=== PATIENT | male | born 1940 | race Caucasian/White ===

== ENCOUNTER → 2023-05-06 10:36 | Outpatient (BNV) | payer MEDICARE, BC, SELFPAY ==
--- NOTE | 2023-05-06 10:37 | PD.URODRB ---
Questionnaires Social History Living Situation History Housing: Mobile home Tobacco History Smoking Status: Never smoker Alcohol History Alcohol Intake: Never Review of Systems Report any current symtoms Select symptoms you are currently experiencing: Past Medical History Past Medical History Have you ever been diagnosed with any of the following: Cardiology Problems Congestive Heart Failure: No Edema: No Cellulitis: No Hypertension: Yes Respiratory Problems Chronic Obstructive Pulmonary Disease (COPD): No Asthma: No Stomache/Intestinal Problems Hemorrhoids: Yes Genital/Urinary Problems Renal Disease: No Benign Prostatic Hyperplasia: Yes Musculoskeletal Problems Degenerative Disk Disease: Yes Degenerative Joint Disease: Yes Endocrine Problems Diabetes Mellitus Type 1: No Diabetes Mellitus Type 2: No Blood Problems Sickle Cell Disease: No Other Problems Cancer: Yes (history of throat cancer) Surgical History Pacemaker: Yes Provider Notes Provider Notes HISTORY OF PRESENT ILLNESS: [] REVIEW OF SYSTEMS: [] EXAM: [] ASSESSMENT & PLAN: [] VISIT DIAGNOSIS: []
--- NOTE | 2023-05-06 10:38 | PD.URODRB ---
Questionnaires Social History Living Situation History Housing: Mobile home Tobacco History Smoking Status: Never smoker Alcohol History Alcohol Intake: Never Review of Systems Report any current symtoms Select symptoms you are currently experiencing: Past Medical History Past Medical History Have you ever been diagnosed with any of the following: Cardiology Problems Congestive Heart Failure: No Edema: No Cellulitis: No Hypertension: Yes Respiratory Problems Chronic Obstructive Pulmonary Disease (COPD): No Asthma: No Stomache/Intestinal Problems Hemorrhoids: Yes Genital/Urinary Problems Renal Disease: No Benign Prostatic Hyperplasia: Yes Musculoskeletal Problems Degenerative Disk Disease: Yes Degenerative Joint Disease: Yes Endocrine Problems Diabetes Mellitus Type 1: No Diabetes Mellitus Type 2: No Blood Problems Sickle Cell Disease: No Other Problems Cancer: Yes (history of throat cancer) Surgical History Pacemaker: Yes Provider Notes Provider Notes HISTORY OF PRESENT ILLNESS: [BPH with urinary obstruction and LUTS, mild bilateral hydronephrosis, urinary retention, placement of Kidd catheter history of present illness this is a 83-year-old gentleman he is admitted in the hospital through the emergency room patient is sleeping comfortably in the bed denies urinary problem before. The patient has a history of abdominal pain Patient has history of degenerative disc disease and disc degenerative joint disease. He is s/p back surgery He has no history of gross hematuria or dysuria denies any prostatic surgery before I do not have any PSA on this patient] REVIEW OF SYSTEMS: See HPI Various medication he is on losartan 50 mg p.o. daily aspirin 81 mg, fentanyl 25 mcg transdermal patch oxycodone and on Plavix EXAM: [On examination general condition is satisfactory orientation x3 patient is lying comfortably in the bed HEENT normocephalic atraumatic eyes no anemia jaundice neck supple trachea central thyroid is not enlarged extremities reveal no edema cyanosis or clubbing he has indwelling Kidd catheter Hemoglobin is 4.2 BUN is 22, creatinine 0.8] ASSESSMENT & PLAN: #1 BPH with urinary obstruction and LUTS 2. 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 daily and finasteride 5 mg p.o. daily and trial of voiding in another 4 days Patient is going to be seen in urology office he is going to need a complete work-up in the form of PSA uroflow bladder scan prostate ultrasound and cystoscopic examination this was explained to patient VISIT DIAGNOSIS: []
== END ==
PROVIDERS: Visit Provider Urology